=== PATIENT | male | born 1970 | race Two or more races ===

== ENCOUNTER 2023-04-14 23:42 | Emergency (ER) | payer OTHER ==
[~2023-04-14] VITALS: Ht 185.4 cm; Wt 112.9 kg
--- NOTE | 2023-04-14 23:49 | NUR ---
[id number] AND [employer], CLEARANCE FOR BOOKING, PUNCHED A BEAUTY SALON GLASS, W/ LEFT HAND LAC, NO TDAP. PT [id number], IN NAD.
[2023-04-15] MEDS ORDERED: TDAP [DIPH/PERTUSSIS/TET] 0.5 ML VIAL IM ONE ×2 (00:01)
--- NOTE | 2023-04-15 00:26 | NUR ---
XR AT BEDSIDE
[2023-04-15 02:12] VITALS: BP 144/88
--- NOTE | 2023-04-15 02:12 | NUR ---
patient left in stable condition, accompanied by [employer] in no distress.
--- NOTE | 2023-04-15 02:12 | NUR ---
Patient discharged with [employer] in stable condition. Written and verbal after care instructions given. Patient verbalizes understanding of instruction.
== END 2023-04-15 02:12 ==
LOC: ER 23:57
DX: S61.412A Laceration without foreign body of left hand, initial encounter (principal); S61.411A Laceration without foreign body of right hand, initial encounter; W22.8XXA Striking against or struck by other objects, initial encounter; Y93.89 Activity, other specified; Y92.89 Other specified places as the place of occurrence of the external cause; Y99.8 Other external cause status
CPT/HCPCS: 73130-TC; 90715